=== PATIENT | female | born 1955 | race Two or more races ===

== ENCOUNTER → 2018-06-07 | Outpatient (CLI) | payer OTHER | END | disposition home or self-care (01) | LOC: HKI 12:55 | DX: S82.002D Unspecified fracture of left patella, subsequent encounter for closed fracture with routine healing (principal); X58.XXXD Exposure to other specified factors, subsequent encounter | CPT/HCPCS: 73560; 73560-LT ==

== ENCOUNTER → 2018-06-21 | Outpatient (CLI) | payer OTHER | END | disposition home or self-care (01) | LOC: HKI 10:31 | DX: Z47.89 Encounter for other orthopedic aftercare (principal); S82.002D Unspecified fracture of left patella, subsequent encounter for closed fracture with routine healing; X58.XXXD Exposure to other specified factors, subsequent encounter | CPT/HCPCS: 73560; 73560-LT ==

== ENCOUNTER → 2018-07-12 | Outpatient (CLI) | payer OTHER | END | disposition home or self-care (01) | LOC: HKI 10:08 | DX: Z47.89 Encounter for other orthopedic aftercare (principal); S82.092D Other fracture of left patella, subsequent encounter for closed fracture with routine healing; X58.XXXD Exposure to other specified factors, subsequent encounter | CPT/HCPCS: 73560; 73560-LT ==

== ENCOUNTER → 2018-08-23 | Outpatient (CLI) | payer OTHER | END | disposition home or self-care (01) | LOC: HKI 10:06 | DX: S82.002D Unspecified fracture of left patella, subsequent encounter for closed fracture with routine healing (principal); X58.XXXD Exposure to other specified factors, subsequent encounter | CPT/HCPCS: 73560; 73560-LT ==